=== PATIENT | female | born 1970 | race Caucasian/White ===

== ENCOUNTER → 2019-02-24 | Outpatient (CLI) | payer BC ==
--- NOTE | 2019-02-24 17:42 | Diagnostic Imaging Report ---
INDICATION: Routine screening. COMPARISON: Prior mammogram from 08/05/2012. EXAMINATION: 2D and 3D bilateral screening mammography was performed with CAD. The current study was also evaluated with a Computer Aided Detection (CAD) system. FINDINGS: Both breasts are heterogeneously dense, limiting the sensitivity of mammography. There is a density in the medial aspect of the right breast on the CC view, mid depth. This is best seen on tomographic image. No correlate on the MLO view is identified. Left breast is unremarkable. No suspicious calcifications are seen. IMPRESSION: Right breast density. Additional views, including spot compression and rolled CC views, are recommended. ACR BI-RADS Category 0: Incomplete. (Needs additional imaging evaluation). Result letter will be mailed to the patient. Note: At least 10% of breast cancer is not imaged by mammography. Dictated by: Dictated on workstation # [id number]
== END ==
LOC: RAD 07:27
PROVIDERS: ATTEND Family Medicine
DX: Z12.31 Encounter for screening mammogram for malignant neoplasm of breast (principal); R92.8 Other abnormal and inconclusive findings on diagnostic imaging of breast
CPT/HCPCS: 77067

== ENCOUNTER → 2019-03-09 | Outpatient (CLI) | payer BC ==
--- NOTE | 2019-03-09 22:22 | Diagnostic Imaging Report ---
INDICATION: Right breast density. Patient presents for further evaluation. Correlation is made with diagnostic study earlier the same day as well as screening mammogram from 02/24/2019. FINDINGS: Sonographic interrogation of the inner right breast was performed. There is a cyst at the 12 o'clock retroareolar region measuring 5 mm x 4 mm x 5 mm. It is uncertain if this represents density noted mammographically. No other suspicious sonographic findings are seen. No solid masses are detected. IMPRESSION: Simple cyst right breast. No suspicious abnormality is detected. Even so, followup right mammogram and right breast ultrasound in 6 months is recommended to show continued stability. ACR BI-RADS Category 3: Probably benign findings. Dictated by: Dictated on workstation # [id number]
--- NOTE | 2019-03-09 22:33 | Diagnostic Imaging Report ---
INDICATION: Right breast density. Patient presents for additional views. Correlation is made with recent screening study from 02/24/2019. Unilateral right 2-D and 3-D diagnostic mammography was performed including spot compression CC, rolled CC and 90 degree lateral views with a Computer Aided Detection (CAD) system. FINDINGS: Additional views show persistent somewhat circumscribed density in the upper and inner aspect of the right breast approximately 3-4 cm from the nipple. Further evaluation of this area with ultrasound is recommended. No suspicious calcifications are seen. IMPRESSION: Persistent density upper inner right breast. Further evaluation with ultrasound is recommended and will be performed today. ACR BI-RADS Category 0: Incomplete. (Needs additional imaging evaluation). Result letter will be mailed to the patient. Note: At least 10% of breast cancer is not imaged by mammography. Dictated by: Dictated on workstation # [id number]
== END ==
LOC: RAD 12:58
PROVIDERS: ATTEND Family Medicine
DX: N60.01 Solitary cyst of right breast (principal)

== ENCOUNTER → 2019-11-27 | Outpatient (CLI) | payer BC ==
--- NOTE | 2019-11-27 14:02 | Diagnostic Imaging Report ---
INDICATION: Six-month followup right breast density. Correlation is made with prior mammogram from 03/09/2019. Unilateral right 2-D and 3-D diagnostic mammography was performed. Right breast remains heterogeneously dense. Circumscribed density in the inner aspect of the right breast mid depth is noted and appears similar to prior exam. No new mass is identified. No malignant-appearing microcalcifications are seen. Right axilla is unremarkable. IMPRESSION: BI-RADS 0 Stable right mammogram. Even so, sonographic interrogation right breast of the inner aspect approximately 2-3 o'clock location will be performed. In addition 12 o'clock location cyst seen previously will be 12 months ACR BI-RADS Category 0: Incomplete. (Needs additional imaging evaluation). Result letter will be mailed to the patient. Note: At least 10% of breast cancer is not imaged by mammography. Dictated by: Dictated on workstation # [id number]
--- NOTE | 2019-11-28 12:38 | Diagnostic Imaging Report ---
Indication: Six-month follow-up. Correlation is made with prior right breast ultrasound from 03/23/2019 as well as diagnostic mammogram earlier same day. Previously noted cyst at the 12:00 location of the right breast retroareolar region is no longer visualized. Evaluation of the upper and inner aspect of the right breast was performed. There is a area of hypoechogenicity 2:30 location 3 cm from the nipple measuring 15 mm x 6 mm x 9 mm. This may account for the density noted mammographically. This could represent fibroglandular tissue versus benign etiology such as a fibroadenoma. Follow-up would be recommended. There is also a simple appearing cyst at the 9:00 location 3 cm from the nipple measuring 6 mm x 3 mm x 6 mm. IMPRESSION: BI-RADS 3 Simple cyst 3:00 location right breast. Previously noted simple cyst 12:00 retroareolar has resolved. There is a questionable lobulated benign-appearing nodule versus fibroglandular tissue at the 2:30 location 3 cm from the nipple, corresponding with the density noted mammographically. Follow-up ultrasound is recommended in 6 months to confirm stability. ACR BI-RADS Category 3: Probably benign findings. Dictated by: Dictated on workstation # [id number]
== END ==
LOC: RAD 13:39
PROVIDERS: ATTEND Family Medicine
DX: N60.01 Solitary cyst of right breast (principal)

== ENCOUNTER → 2020-06-03 | Outpatient (CLI) | payer BC ==
--- NOTE | 2020-06-03 14:25 | Diagnostic Imaging Report ---
INDICATION: Followup breast mass. COMPARISON: Prior ultrasound 11/27/2019. TECHNIQUE: Targeted ultrasound at 9 o'clock position of the right breast was performed. FINDINGS: There are no discrete solid cystic masses in the right breast on today's examination. The previous study described small cyst is resolved. IMPRESSION: Category 1 negative. Negative right breast ultrasound. ACR BI-RADS Category 1: Negative. Result letter will be mailed to the patient. Note: At least 10% of breast cancer is not imaged by mammography. Dictated by: Dictated on workstation # [id number]
--- NOTE | 2020-06-03 14:55 | Diagnostic Imaging Report ---
INDICATION: Six-month followup. COMPARISON: 02/24/2019 and 11/27/2019. FINDINGS: The fibroglandular tissue is heterogeneously dense bilaterally. There is no dominant mass, spiculated lesion, or suspicious calcification identified. The skin, nipples, and axillae are unremarkable. The ultrasound of the right breast was repeated; however, this showed resolution of the previously seen cyst. No other solid or cystic masses. IMPRESSION: Benign findings. ACR BI-RADS Category 2: Benign findings. Result letter will be mailed to the patient. Note: At least 10% of breast cancer is not imaged by mammography. Dictated by: Dictated on workstation # [id number]
== END ==
LOC: RAD 13:45
PROVIDERS: ATTEND Nurse Practitioner Family
DX: Z12.31 Encounter for screening mammogram for malignant neoplasm of breast (principal); N63.10 Unspecified lump in the right breast, unspecified quadrant
CPT/HCPCS: 76642; 77066; G0279; 77062

== ENCOUNTER → 2021-12-29 | Outpatient (CLI) | payer BC ==
--- NOTE | 2021-12-29 12:04 | Diagnostic Imaging Report ---
INDICATION: Routine screening. Comparison is made with prior mammogram 06/03/2020 and 02/24/2019. 2-D and 3-D bilateral screening mammography was performed with CAD. Both breasts are heterogeneously dense, limiting the sensitivity of mammography. The parenchymal pattern is stable. No mass or malignant-appearing microcalcifications are seen. Axillae are unremarkable. IMPRESSION: BI-RADS Category 1 No mammographic features suspicious for malignancy are identified. ACR BI-RADS Category 1: Negative. Result letter will be mailed to the patient. Note: At least 10% of breast cancer is not imaged by mammography. Dictated by: Dictated on workstation # [id number]
== END ==
LOC: RAD 10:15
PROVIDERS: ATTEND Family Medicine
DX: Z12.31 Encounter for screening mammogram for malignant neoplasm of breast (principal)
CPT/HCPCS: 77063; 77067

== ENCOUNTER 2022-01-22 05:35 | Outpatient (CLI) | payer BC ==
[~2022-01-22] VITALS: Ht 172.7 cm; Wt 65.8 kg
[2022-01-22] MEDS ORDERED: ASCO1TAB42 PO (11:02)
[2022-01-22] MEDS ORDERED: ESTR10TA9 PO (11:02)
[2022-01-22] MEDS ORDERED: CRAN200C PO (11:02)
[2022-01-22] MEDS ORDERED: ESCI10TA PO (11:02)
[2022-01-22] MEDS ORDERED: CHOL200012 PO (11:02)
[2022-01-22] MEDS ORDERED: VITA100033 PO (11:02)
== END 2022-01-22 13:29 | disposition home or self-care (01) ==
LOC: PREOP 05:35
PROVIDERS: ATTEND Internal Medicine
DX: Z01.818 Encounter for other preprocedural examination (principal)

== ENCOUNTER 2022-01-30 07:52 | Day surgery (SDC) | payer BC ==
--- NOTE | 2022-01-22 08:07 | HISTORY AND PHYSICAL ---
DATE OF SERVICE: COLONOSCOPY HISTORY AND PHYSICAL HISTORY OF PRESENT ILLNESS: The patient is a 51-year-old white female referred by Dr. Driver for her first screening colonoscopy. She is deemed to be of higher than average risk as her brother at the age of 62, recently diagnosed with colon cancer, also had a grandfather with colon cancer, and a sister who has had several reported precancerous polyps removed at the age of 55 on her recent colonoscopy. She denies bright red blood per rectum, change in bowel habits, abdominal pain or change in weight. PAST SURGICAL HISTORY: She has had total abdominal hysterectomy with bilateral salpingo-oophorectomy for benign reasons in the past, had partial thyroidectomy and also for hyperparathyroidism, had 3-1/2 parathyroid removed. No reported significant trouble with hypocalcemia in some time. No cramping problems reported. PAST MEDICAL HISTORY: Significant for depression, which she reports is in remission on Lexapro and hyperparathyroidism as noted above. She has a history of right shoulder impingement syndrome, being treated conservatively. MEDICATIONS ON ADMISSION: Prescriptions include Premarin 1.25 mg daily, Lexapro 10 mg daily, vitamin D 1000 units daily and fiber clear supplementation daily. FAMILY HISTORY: As noted in the HPI. Father living at age of 87 with CLL, also has recently diagnosed GIST tumor of the stomach. Mother living at age of 87 with a diagnosis of breast cancer. SOCIAL HISTORY: No significant alcohol consumption. No past smoking history. REVIEW OF SYSTEMS: CONSTITUTIONAL: Denies night sweats, chills, fever, or change in weight. GASTROINTESTINAL: As noted in the HPI. PULMONARY: Denies cough, wheezing, or shortness of breath. CARDIOVASCULAR: Denies orthopnea, PND, pedal edema, or syncope or chest pain. PHYSICAL EXAMINATION: GENERAL: Reveals a pleasant white female, appears to be in no acute distress. VITAL SIGNS: Weight 148 pounds and blood pressure 120/82. HEENT: Unremarkable. Sclerae nonicteric. CHEST: Clear to auscultation. CARDIOVASCULAR: Reveals regular rate and rhythm without murmur, S3, or S4. ABDOMEN: Soft, supple without mass, organomegaly or tenderness. No bruits noted. EXTREMITIES: Reveal no cyanosis, clubbing or edema. ASSESSMENT AND PLAN: The patient is being set up for her first screening colonoscopy, deemed to be higher than average risk due to family history colon cancer, see above. Prep instructions with the Suprep kit were given and questions were answered. I thank you for the referral of this pleasant lady. Job ID: [id number] DocumentID: [id number] Dictated Date: 01/05/2022 15:50:50 Milieu Therapist Date: 01/05/2022 16:16:59 Dictated By: NOAH REBOLLAR MD
[~2022-01-30] VITALS: Ht 172.7 cm; Wt 65.8 kg
[~2022-01-30 07:52] MED LIST: ASCO1TAB42 PO; CHOL200012 PO; CRAN200C PO; ESCI10TA PO; ESTR10TA9 PO; VITA100033 PO
[2022-01-30] MEDS ORDERED: LACTATED RINGERS 1,000 ML IV ONE (07:56)
[2022-01-30] MEDS ORDERED: LACTATED RINGERS 1,000 ML IV STA (07:57)
--- NOTE | 2022-01-30 08:09 | Pre-Op Note & Conscious Sedat ---
Pre-Operative Progress Note H&P Reviewed The H&P was reviewed, patient examined and no changes noted. Date H&P Reviewed: Jan 30, 2022 Time H&P Reviewed: 08:08 Conscious Sedation Pre-Proced ASA Score 2 For ASA 3 and 4: Consider anesthesia and medical clearance. Also, for patients with a history of failed moderate sedation consider anesthesia. Airway Lungs Heart ASA score ASA 1: a normal healthy patient ASA 2: a patient with a mild systemic disease (mid diabetes, controlled hypertension, obesity ASA 3: a patient with a severe systemic disease that limits activity (angina, COPD, prior Myocardial infarction) ASA 4: a patient with an incapacitating disease that is a constant threat to life (CHF, renal failure) ASA 5: a moribund patient not expected to survive 24 hrs. (ruptured aneurysm) ASA 6: a declared brain- patient whose organs are being harvested. For emergent operations, add the letter E after the classification Mallampati Classification Grade 2 Sedation Plan Analgesia, Amnesia, Plan communicated to team members, Discussed options with patient/fam, Discussed risks with patient/fam The patient is an appropriate candidate to undergo the planned procedure, sedation, and anesthesia. The patient immediately re-assessed prior to indication. NOAH REBOLLAR MD Jan 30, 2022 08:09
[2022-01-30] MEDS ORDERED: PROPOFOL INJECTION 50 ML IV ONE (08:11)
[2022-01-30] MEDS ORDERED: MIDAZOLAM 2 MG/2 ML (VERSED) VIAL ONE (08:11)
[2022-01-30 08:15] VITALS: BP 126/92
[2022-01-30 09:10] VITALS: BP 102/61
[2022-01-30 09:15] VITALS: BP 113/64
--- NOTE | 2022-01-30 09:21 | Anesthesia-General Post-Op ---
MAC Patient Condition Mental Status/LOC: Same as Preop Cardiovascular: Satisfactory Nausea/Vomiting: Absent Respiratory: Satisfactory Pain: Controlled Complications: Absent Post Op Complications Complications None Follow Up Care/Instructions Patient Instructions None needed. Anesthesiology Discharge Order Discharge Order Patient is doing well, no complaints, stable vital signs, no apparent adverse anesthesia problems. No complications reported per nursing. RAJAT LEBLANC CRNA Jan 30, 2022 09:21
[2022-01-30 09:35] VITALS: BP 118/60
[2022-01-30 10:05] VITALS: BP 118/60
--- NOTE | 2022-01-30 11:46 | OPERATIVE REPORT ---
DATE OF SERVICE: COLONOSCOPY SUMMARY INDICATION FOR THE PROCEDURE: Screening colonoscopy, family history for colon cancer. DESCRIPTION OF PROCEDURE: The patient was placed in the left lateral decubitus position. Prior to undergoing colonoscopy, digital rectal evaluation was performed. Anal sphincter tone was normal. The perianal reflexes intact. There is a small skin tag at the perineum. No abnormalities were noted on digital inspection of the anal canal or distal rectal vault. The colonoscope was then inserted into the rectum and under direct visualization advanced to the cecum. The cecum was identified by identification of the ileocecal valve and cecal strap. Photographic documentation was obtained. Quality of prep was good. FINDINGS: No evidence for internal or external hemorrhoids were noted. The rectum was unremarkable. A diminutive 3 mm sessile polyp was noted in the distal sigmoid colon. It was photographed and biopsied and ablated with no blood loss. Several small sigmoid diverticulum were present with no other sigmoid colonic abnormalities being appreciated. The descending colon, splenic flexure, transverse colon, and hepatic flexure were unremarkable. Present in the proximal ascending colon was a 2 mm sessile polyp that was photographed, biopsied and ablated with no blood loss. The cecum and the colon was unremarkable. ASSESSMENT: Two sessile diminutive polyps were removed today, one from the distal sigmoid colon and the other one from the proximal ascending colon via hot forceps with no blood loss. Two small sigmoid diverticulum were noted without evidence for diverticulitis. No other abnormalities noted on today's procedure. Considering family history, I would advocate consideration for repeat screening colonoscopy in five years. I thank you for the referral of this pleasant lady. Job ID: [id number] DocumentID: [id number] Dictated Date: 01/30/2022 09:11:24 Compositor Apprentice Date: 01/30/2022 11:45:35 Dictated By: NOAH REBOLLAR MD
== END 2022-01-30 10:05 | disposition home or self-care (01) ==
LOC: ENDO 07:52
PROVIDERS: ATTEND Internal Medicine
DX: Z12.11 Encounter for screening for malignant neoplasm of colon (principal); D12.2 Benign neoplasm of ascending colon; D12.5 Benign neoplasm of sigmoid colon; K57.30 Diverticulosis of large intestine without perforation or abscess without bleeding; Z80.0 Family history of malignant neoplasm of digestive organs
CPT/HCPCS: 88305

== ENCOUNTER → 2022-06-01 | Outpatient (CLI) | payer BC ==
--- NOTE | 2022-06-01 14:43 | Diagnostic Imaging Report ---
Indication: Shortness of breath with dizziness. FINDINGS: PA and lateral views. The lungs are well-aerated and clear. Heart isn't enlarged. No pulmonary edema or hilar adenopathy. No pneumothorax or pleural effusion. No bony abnormalities. IMPRESSION: Normal PA and lateral chest. Dictated by: Dictated on workstation # [id number]
== END ==
LOC: RAD 10:14
PROVIDERS: ATTEND Family Medicine
DX: R06.02 Shortness of breath (principal); R42 Dizziness and giddiness
CPT/HCPCS: 71046

== ENCOUNTER → 2022-06-09 | Outpatient (CLI) | payer BC ==
[~2022-06-09] MED LIST changes: +RT-ALBUTEROL SULF 2.5 MG/3 ML PRE-MIX VIAL INH ONE
== END ==
LOC: RT 07:40
PROVIDERS: ATTEND Family Medicine
DX: R06.00 Dyspnea, unspecified (principal)
CPT/HCPCS: 94060; 94726; 94729

== ENCOUNTER → 2022-07-04 | Outpatient (CLI) | payer BC ==
[~2022-07-04] MED LIST changes: -RT-ALBUTEROL SULF 2.5 MG/3 ML PRE-MIX VIAL INH ONE
[2022-07-04 09:50] LABS: BASOPHILS % (AUTO) 0 % (0-10); EOSINOPHILS # (AUTO) 0.1 10^3/uL (0.0-0.3); EOSINOPHILS % (AUTO) 2 % (0-10); HEMATOCRIT 41 % (35-52); HEMOGLOBIN 13.7 g/dL (11.5-16.0); LYMPHOCYTES # (AUTO) 1.4 10^3/uL (1.0-4.0); LYMPHOCYTES % (AUTO) 31 % (12-44); MEAN CORPUSCULAR HEMOGLOBIN 31 pg (25-34); MEAN CORPUSCULAR HGB CONC 34 g/dL (32-36); MEAN CORPUSCULAR VOLUME 92 fL (80-99); MEAN PLATELET VOLUME 9.2 fL (9.0-12.2); MONOCYTES # (AUTO) 0.5 10^3/uL (0.0-1.0); MONOCYTES % (AUTO) 11 % (0-12); NEUTROPHILS # (AUTO) 2.5 10^3/uL (1.8-7.8); NEUTROPHILS % (AUTO) 56 % (42-75); PLATELET COUNT 215 10^3/uL (130-400); WHITE BLOOD COUNT 4.5 10^3/uL (4.3-11.0)
[2022-07-04 10:13] LABS: ALBUMIN 3.9 GM/DL (3.2-4.5); BILIRUBIN,TOTAL 0.3 MG/DL (0.1-1.0); CALCIUM 8.9 MG/DL (8.5-10.1); CREATININE SERUM 0.72 MG/DL (0.60-1.30); POTASSIUM 3.9 MMOL/L (3.6-5.0); TOTAL PROTEIN 6.9 GM/DL (6.4-8.2)
== END ==
LOC: LAB 09:38
PROVIDERS: ATTEND Family Medicine
DX: R19.7 Diarrhea, unspecified (principal); R10.9 Unspecified abdominal pain
CPT/HCPCS: 36415; 80053; 82150; 83690; 85025

== ENCOUNTER → 2022-12-30 | Outpatient (CLI) | payer OTHER ==
--- NOTE | 2022-12-30 11:49 | Diagnostic Imaging Report ---
Indication: Routine screening. Comparison is made with prior mammogram 12/29/2021 and 06/03/2020. 2-D and 3-D bilateral screening mammography was performed with CAD. CAD is utilized. The current study was also evaluated with a Computer Aided Detection (CAD) system. Both breasts are heterogeneously dense, limiting the sensitivity of mammography. The parenchymal pattern is stable. No mass or malignant-appearing microcalcifications are seen. Axillae are unremarkable. IMPRESSION: BI-RADS Category 1 No mammographic features suspicious for malignancy are identified. ACR BI-RADS Category 1: Negative. Result letter will be mailed to the patient. Note: At least 10% of breast cancer is not imaged by mammography. Dictated by: Dictated on workstation # [id number]
== END ==
LOC: RAD 09:07
PROVIDERS: ATTEND Family Medicine
DX: Z12.31 Encounter for screening mammogram for malignant neoplasm of breast (principal)
CPT/HCPCS: 77063; 77067